=== PATIENT | female | born 1990 | race Caucasian/White ===

== ENCOUNTER 2022-04-27 20:35 | Outpatient (CLI) | payer OTHER | END 2022-04-27 20:36 | disposition EMS.NT | LOC: EMS 20:35 | DX: F41.9 Anxiety disorder, unspecified (principal); R11.2 Nausea with vomiting, unspecified ==

== ENCOUNTER 2022-04-27 21:37 | Emergency (ER) | payer OTHER ==
[2022-04-27] MEDS ORDERED: LIDOCAINE TOPICAL 4% 50 ML BOTTLE MM STA (22:45)
[2022-04-27] MEDS ORDERED: ONDANSETRON ODT 4 MG Prepack 2 TL PRN (22:45)
[2022-04-27] MEDS ORDERED: MAG HYDROX/AL HYDROX/SIMETH 30 ML UDC PO STA (22:46)
[2022-04-27] MEDS ORDERED: diphenhydrAMINE ELIXIR 25 MG/10 ML UDC PO STA (22:46)
[2022-04-27] MEDS ORDERED: LIDOCAINE VISCOUS 2% 15 ML UDC MM STA (22:48)
[2022-04-27] MEDS ORDERED: ONDANSETRON ODT 4 MG TABLET TL STA (23:48)
[2022-04-27] MEDS ORDERED: LORazepam 1 MG TABLET PO STA (23:48)
--- NOTE | 2022-04-28 00:35 | ED Physician Documentation ---
History of Present Illness - Stated complaint Stated Complaint: ABD PX/N/V - Chief complaint Chief Complaint: Abd Pain - History obtained from History obtained from: Patient - Additonal information Additional information: 31-year-old woman with pmh pcos, anxiety, depression, presents with epigastric abd pain, 7/10 severity, constant, nonradiating, aching, a/w nausea and retching. symptoms started suddenly at 4am yesterday. patient is concerned she is "gluten intolerant". denies diarrhea, back pain, urinary sx, alcohol use, or possibility of . Review of Systems Ten Systems: 10 systems reviewed and negative Constitutional: denies: Fever, Chills GI: reports: Abdominal Pain, Nausea. denies: Diarrhea, Bloody / black stool : denies: Dysuria PD PAST MEDICAL HISTORY - Present Medications Home Medications: Ambulatory Orders Medication Instructions Recorded Confirmed Ondansetron Odt [Zofran Odt] 4 mg TL Q6H PRN #10 tablet 04/28/22 - Allergies Allergies/Adverse Reactions: Allergies Allergy/AdvReac Type Severity Reaction Status Date / Time No Known Drug Allergies Allergy Verified 04/27/22 21:43 PD ED PE NORMAL - Vitals Vital signs reviewed: Yes - General General: Alert and oriented X 3, Well developed/nourished, Other (anxious ap pearing) - HEENT HEENT: Atraumatic, PERRL, EOMI - Neck Neck: Supple, no meningeal sign - Cardiac Cardiac: RRR - Respiratory Respiratory: No respiratory distress, Clear bilaterally - Abdomen Abdomen: Non tender, Non distended, Other (discomfort in epigastrium) - Back Back: No CVA TTP - Derm Derm: Normal color, Warm and dry - Extremities Extremities: No deformity - Neuro Neuro: Alert and oriented X 3, No motor deficit, No sensory deficit - Psych Psych: Other (anxious affect) Results - Vitals Vitals: Vital Signs - 24 hr 04/27/22 04/27/22 04/27/22 21:43 21:48 23:48 Temperature 37.6 C 37.6 C 37.5 C Heart Rate 76 76 72 Respiratory 16 16 16 Rate Blood Pressure 108/84 H 108/84 H 110/80 O2 Saturation 100 100 100 Oxygen O2 Source Room air PD MEDICAL DECISION MAKING - ED course ED course: 31-year-old woman presents with epigastric abdominal pain, nausea and retching. Abdomen was nontender. She was able to tolerate Magic mouthwash (Maalox, Benadryl, lidocaine), but then threw it up. She then felt better and was able to take small sips of water. On recheck status post Zofran and Ativan, patient is much improved and ready to go home. Plan to follow-up with primary care provider. Return precautions given. Departure - Departure Disposition: Home, Self Care Clinical Impression: Nausea and vomiting, Epigastric pain Condition: Good Instructions: ED Nausea Vomiting Prescriptions: Ondansetron Odt [Zofran Odt] 4 mg TL Q6H PRN #10 tablet PRN Reason: Nausea / Vomiting Comments: You were seen in the emergency department for evaluation of nausea and vomiting. A precription for zofran, an antinausea medicine, was sent to [facility] [place]. [place] and return to the emergency de partment if you have any new or worsening symptoms or other concerns. Forms: Activity restrictions
[2022-04-28 00:43] VITALS: BP 112/72
== END 2022-04-28 00:43 | disposition home or self-care (01) ==
LOC: ED 21:37
DX: R10.13 Epigastric pain (principal); R11.2 Nausea with vomiting, unspecified
CPT/HCPCS: 99282; A9270; J8499; Q0162